=== PATIENT | female | born 1990 | race Caucasian/White ===

== ENCOUNTER 2017-10-25 06:48 | Outpatient (CLI) | payer BC ==
[~2017-10-25 06:48] MED LIST: CIPRO500 MG PO; DEPO-PROVE150 MG/1 M IM; IBUPROFEN800 MG PO; INDOCIN50 MG PO; LEXAPRO20 MG PO; LO-DOSE ASPIRIN81 M1 PO; MACROBID100 MG PO; MOTRIN800 MG PO; NAPROSYN500 MG PO; PREDNISONE20 MG PO; PRENATAL TABLE1 EACH PO; SEROQUEL100 MG PO; ULTRACET1 TABLET PO; VICODIN 5-3001 EACH PO; XANAX0.5 MG PO
[2017-10-25 07:11] VITALS: BP 102/63
[2017-10-25 07:52] LABS: BASOPHIL (%) 0.5 % (0-1); BASOPHIL COUNT 0.1 K/uL (0-0.1); EOSINOPHIL (%) 2.6 % (0-5); EOSINOPHIL COUNT 0.3 K/uL (0-0.3); HEMATOCRIT 33.5 % (36.0-46.0); HEMOGLOBIN 11.4 G/DL (11.9-15.5); IMMATURE GRANULOCYTE (%) 0.5 % (0.0-0.7); LYMPHOCYTE (%) 20.6 % (15-42); LYMPHOCYTE COUNT 2.3 K/uL (1.0-2.8); MCH 30.9 PG (29.0-34.0); MCV 90.8 FL (83-99); MONOCYTE (%) 5.5 % (3-12); MONOCYTE COUNT 0.6 K/uL (0-0.8); NEUTROPHIL (%) 70.3 % (45-76); PLATELET COUNT 259 K/uL (156-360); RBC DIS.WIDTH-SD 42.6 % (39-53); RED BLOOD COUNT 3.69 M/uL (3.80-5.20); WHITE BLOOD COUNT 11.3 K/uL (4.1-10.2)
[2017-10-25 08:02] LABS: APPEARANCE CLOUDY ((CLEAR)); BILIRUBIN NEGATIVE; BLOOD NEGATIVE; GLUCOSE (STRIP) NEGATIVE; KETONES NEGATIVE; LEUKOCYTES LARGE; NITRITE NEGATIVE; PROTEIN (STRIP) NEGATIVE
[2017-10-25 08:07] LABS: COLOR YELLOW ((YELLOW))
[2017-10-25 08:14] LABS: ALBUMIN 3.2 G/DL (3.2-4.8); ALKALINE PHOSPHATASE 69 IU/L (3-129); ALT (GPT) 15 IU/L (3-49); AMYLASE 39 IU/L (1-118); AST (GOT) 20 IU/L (2-34); CHLORIDE 108 MEQ/L (99-109); CREATININE 0.5 MG/DL (0.6-1.3); GFR ESTIMATE (CALCULATED) > 59 mL/min/; GLUCOSE 83 mg/dL (70-99); LIPASE 14 U/L (1.0-51.0); POTASSIUM 3.4 MEQ/L (3.7-5.4); SODIUM 138 MEQ/L (136-147); TOTAL BILIRUBIN 0.4 MG/DL (0.0-1.0); TOTAL PROTEIN 5.7 G/DL (6.4-8.3); UREA NITROGEN (BUN) 5 mg/dL (9-23)
[2017-10-25 08:19] LABS: EPITHELIAL CELLS 4+ /HPF; MUCUS 1+ /LPF
[2017-10-25 08:20] LABS: BACTERIA 3+ /HPF; RED BLOOD CELLS NONE SEEN /HPF (0-5); UCUL ADDED? YES; WHITE BLOOD CELLS TNTC /HPF (0-5)
[2017-10-25 08:21] LABS: CALCIUM OXALATE CRYSTALS 2+ /HPF
[2017-10-25 08:23] LABS: AMPHETAMINE NEGATIVE (500 ng/mL); BARBITURATES NEGATIVE (200 ng/mL); BENZODIAZEPINES NEGATIVE (150 ng/mL); BUPRENORPHINE NEGATIVE (10 ng/mL); COCAINE NEGATIVE (150 ng/mL); METHADONE NEGATIVE (200 ng/mL); METHAMPHETAMINE NEGATIVE (500 ng/mL); OPIATES (MORPHINE) NEGATIVE (100 ng/mL); OXYCODONE NEGATIVE (100 ng/mL); PHENCYCLIDINE NEGATIVE (25 ng/mL); PROPOXYPHENE NEGATIVE (300 ng/mL); THC CANNABINOIDS NEGATIVE (50 ng/mL); TRICYCLIC ANTIDEPRESSANTS NEGATIVE (300 ng/mL)
[2017-10-25 08:24] LABS: UR CREATININE CONCENTRATION 238.4 MG/DL
[2017-10-25 10:07] LABS: SOURCE URINE
[2017-10-25 11:40] LABS: APPEARANCE SL.HAZY ((CLEAR)); BILIRUBIN NEGATIVE; BLOOD NEGATIVE; COLOR YELLOW ((YELLOW)); GLUCOSE (STRIP) NEGATIVE; KETONES NEGATIVE; LEUKOCYTES NEGATIVE; NITRITE NEGATIVE; PROTEIN (STRIP) NEGATIVE; SPECIFIC GRAVITY 1.012 (1.000-1.030)
[2017-10-25 12:18] LABS: BACTERIA RARE /HPF; EPITHELIAL CELLS NONE SEEN /HPF; MUCUS TRACE /LPF; RED BLOOD CELLS 0-5 /HPF (0-5); WHITE BLOOD CELLS 0-5 /HPF (0-5)
[2017-10-25 21:20] LABS: CANDIDA DNA PROBE NEGATIVE; GARDNERELLA DNA PROBE NEGATIVE; TRICHOMONAS DNA PROBE NEGATIVE
[2017-10-26 14:14] LABS: CHLAMYDIA TRACHOMATIS NEGATIVE; NEISSERIA GONORRHOEAE NEGATIVE
== END 2017-10-25 13:49 | disposition home or self-care (01) ==
LOC: LDRP-OP 06:48 → 2WEST 06:53 → LDRP-OP 03-19 08:37
PROVIDERS: Advanced Practice Midwife; Obstetrics & Gynecology
DX: O26.612 Liver and biliary tract disorders in pregnancy, second trimester (principal); K80.20 Calculus of gallbladder without cholecystitis without obstruction; O99.282 Endocrine, nutritional and metabolic diseases complicating pregnancy, second trimester; E87.6 Hypokalemia; M54.9 Dorsalgia, unspecified; O99.332 Smoking (tobacco) complicating pregnancy, second trimester; F17.210 Nicotine dependence, cigarettes, uncomplicated; Z3A.23 23 weeks gestation of pregnancy
CPT/HCPCS: 59025; 76705; 76770; 76805; 80053; 81003; 82150; 82570; 82731; 83690; 84156; 85025; 87086; 87480; 87491; 87510; 87591; 87660; G0378; J7120

== ENCOUNTER 2017-11-15 14:31 | Outpatient (CLI) | payer BC, OTHER | END 2017-11-15 18:31 | disposition home or self-care (01) | LOC: LDRP-OP 14:31 → 2WEST 14:32 → LDRP-OP 03-19 00:16 | DX: O9A.212 Injury, poisoning and certain other consequences of external causes complicating pregnancy, second trimester (principal); Z3A.26 26 weeks gestation of pregnancy; W19.XXXA Unspecified fall, initial encounter | CPT/HCPCS: 59025; 76805; G0378 ==

== ENCOUNTER → 2017-11-17 | Outpatient (CLI) | payer BC, OTHER ==
[~2017-11-17] VITALS: Ht 170.2 cm; Wt 73.0 kg
[2017-11-17 15:48] VITALS: BP 114/71
== END | disposition home or self-care (01) ==
LOC: IVINF 15:00
DX: Z34.80 Encounter for supervision of other normal pregnancy, unspecified trimester (principal); Z31.82 Encounter for Rh incompatibility status; Z3A.00 Weeks of gestation of pregnancy not specified; Z67.91 Unspecified blood type, Rh negative
CPT/HCPCS: 96372

== ENCOUNTER 2017-11-25 11:57 | Outpatient (CLI) | payer BC, OTHER ==
[~2017-11-25] VITALS: Ht 170.2 cm; Wt 75.6 kg
[2017-11-25 12:33] LABS: HEMATOCRIT 34.7 % (36.0-46.0); MCH 30.8 PG (29.0-34.0); MCHC 34.6 G/DL (30.0-36.0); MCV 89.2 FL (83-99); PLATELET COUNT 279 K/uL (156-360); RBC DIS.WIDTH-CV 13.1 % (11.8-14.6); RBC DIS.WIDTH-SD 42.6 % (39-53); RED BLOOD COUNT 3.89 M/uL (3.80-5.20)
[2017-11-25 12:47] LABS: ALBUMIN 3.4 g/dL (3.2-4.8); CHLORIDE 110 mEq/L (99-109); POTASSIUM 3.7 mEq/L (3.7-5.4); SODIUM 141 mEq/L (136-147)
[2017-11-25 12:49] LABS: GLUCOSE 87 mg/dL (70-99); TOTAL PROTEIN 6.7 g/dL (6.4-8.3)
[2017-11-25 12:51] LABS: TOTAL BILIRUBIN 0.5 mg/dL (0.0-1.0)
[2017-11-25 12:53] LABS: ALKALINE PHOSPHATASE 80 IU/L (3-129); CREATININE 0.6 mg/dL (0.6-1.3); GFR ESTIMATE (CALCULATED) > 59 mL/min/
[2017-11-25 12:54] LABS: UREA NITROGEN (BUN) 6 mg/dL (9-23)
[2017-11-25 12:55] LABS: AST (GOT) 12 IU/L (2-34)
[2017-11-25 12:56] LABS: ALT (GPT) 8 IU/L (3-49)
[2017-11-25 13:01] LABS: QUANTITATIVE HCG 12719.3 MIU/ML
[2017-11-25 13:35] LABS: LIPASE 15 U/L (1.0-51.0)
[2017-11-25 16:50] LABS: APPEARANCE CLEAR ((CLEAR)); BILIRUBIN NEGATIVE; BLOOD NEGATIVE; COLOR AMBER ((YELLOW)); GLUCOSE (STRIP) NEGATIVE; KETONES 80; LEUKOCYTES SMALL; NITRITE NEGATIVE; PROTEIN (STRIP) 30; SPECIFIC GRAVITY 1.026 (1.000-1.030)
[2017-11-25] MEDS ORDERED: PERCOCET 5/31 TABLET PO (17:45)
[2017-11-25] MEDS ORDERED: KEFLEX500 MG PO (17:45)
[2017-11-25 17:52] LABS: BACTERIA RARE /HPF; EPITHELIAL CELLS 1+ /HPF; MUCUS 3+ /LPF; RED BLOOD CELLS 0-5 /HPF (0-5); UCUL ADDED? YES
[2017-11-25 17:59] VITALS: BP 108/61
== END 2017-11-25 19:30 | disposition home or self-care (01) ==
LOC: EME 11:57 → LDRP-OP 11:57 → EME 18:02 → EDSTATUS 18:12 → 2WEST 18:14
DX: O26.613 Liver and biliary tract disorders in pregnancy, third trimester (principal); O99.612 Diseases of the digestive system complicating pregnancy, second trimester; K80.70 Calculus of gallbladder and bile duct without cholecystitis without obstruction; O99.282 Endocrine, nutritional and metabolic diseases complicating pregnancy, second trimester; E72.12 Methylenetetrahydrofolate reductase deficiency; O99.332 Smoking (tobacco) complicating pregnancy, second trimester; F17.200 Nicotine dependence, unspecified, uncomplicated; Z3A.28 28 weeks gestation of pregnancy; Z88.0 Allergy status to penicillin
CPT/HCPCS: 59025; 76705; 80053; 81003; 83690; 84702; 85027; 87086; 99281; 99285; G0378; J2270; J2405; J7030

== ENCOUNTER 2017-12-11 01:09 | Outpatient (CLI) | payer BC, OTHER ==
[2017-11-25 18:07] VITALS: BP 115/74
[~2017-12-11] VITALS: Ht 170.2 cm; Wt 74.8 kg
[~2017-12-11 01:09] MED LIST changes: +KEFLEX500 MG PO; +PERCOCET 5/31 TABLET PO
[2017-12-11 01:30] VITALS: BP 96/55
[2017-12-11 02:26] LABS: BASOPHIL (%) 0.4 % (0-1); BASOPHIL COUNT 0.1 K/uL (0-0.1); EOSINOPHIL (%) 1.9 % (0-5); EOSINOPHIL COUNT 0.3 K/uL (0-0.3); HEMOGLOBIN 10.7 G/DL (11.9-15.5); IMMATURE GRANULOCYTE (%) 0.4 % (0.0-0.7); LYMPHOCYTE (%) 20.6 % (15-42); LYMPHOCYTE COUNT 2.8 K/uL (1.0-2.8); MCHC 34.5 G/DL (30.0-36.0); MCV 89.9 FL (83-99); MONOCYTE (%) 7.1 % (3-12); NEUTROPHIL (%) 69.6 % (45-76); NEUTROPHIL COUNT 9.4 K/uL (1.8-6.4); PLATELET COUNT 288 K/uL (156-360); RBC DIS.WIDTH-CV 13.2 % (11.8-14.6); RBC DIS.WIDTH-SD 42.6 % (39-53); RED BLOOD COUNT 3.45 M/uL (3.80-5.20); WHITE BLOOD COUNT 13.5 K/uL (4.1-10.2)
[2017-12-11 02:38] LABS: ALBUMIN 3.2 g/dL (3.2-4.8)
[2017-12-11 02:39] LABS: CHLORIDE 106 mEq/L (99-109); POTASSIUM 3.2 mEq/L (3.7-5.4); SODIUM 138 mEq/L (136-147)
[2017-12-11 02:41] LABS: GLUCOSE 124 mg/dL (70-99); TOTAL PROTEIN 5.8 g/dL (6.4-8.3)
[2017-12-11 02:43] LABS: TOTAL BILIRUBIN 0.6 mg/dL (0.0-1.0)
[2017-12-11 02:44] LABS: ALKALINE PHOSPHATASE 93 IU/L (3-129)
[2017-12-11 02:45] LABS: CREATININE 0.6 mg/dL (0.6-1.3); GFR ESTIMATE (CALCULATED) > 59 mL/min/
[2017-12-11 02:46] LABS: AST (GOT) 24 IU/L (2-34); UREA NITROGEN (BUN) 4 mg/dL (9-23)
[2017-12-11 02:48] LABS: ALT (GPT) 10 IU/L (3-49); LIPASE 15 U/L (1.0-51.0)
[2017-12-11 02:48] LABS: APPEARANCE CLOUDY ((CLEAR)); BILIRUBIN NEGATIVE; BLOOD NEGATIVE; COLOR AMBER ((YELLOW)); GLUCOSE (STRIP) NEGATIVE; KETONES NEGATIVE; LEUKOCYTES NEGATIVE; NITRITE NEGATIVE; PROTEIN (STRIP) 30; SPECIFIC GRAVITY 1.019 (1.000-1.030)
[2017-12-11 02:55] LABS: BACTERIA NONE SEEN /HPF; EPITHELIAL CELLS RARE /HPF; HYALINE CASTS 0-5 /LPF; MUCUS 3+ /LPF; RED BLOOD CELLS 0-5 /HPF (0-5)
[2017-12-11 03:05] VITALS: BP 102/60
[2017-12-11 03:26] LABS: THC CANNABINOIDS NEGATIVE (50 ng/mL)
[2017-12-11 03:27] LABS: AMPHETAMINE NEGATIVE (500 ng/mL); BARBITURATES NEGATIVE (200 ng/mL); BENZODIAZEPINES NEGATIVE (150 ng/mL); BUPRENORPHINE NEGATIVE (10 ng/mL); COCAINE NEGATIVE (150 ng/mL); METHADONE NEGATIVE (200 ng/mL); METHAMPHETAMINE NEGATIVE (500 ng/mL); OPIATES (MORPHINE) NEGATIVE (100 ng/mL); OXYCODONE NEGATIVE (100 ng/mL); PHENCYCLIDINE NEGATIVE (25 ng/mL); PROPOXYPHENE NEGATIVE (300 ng/mL); TRICYCLIC ANTIDEPRESSANTS NEGATIVE (300 ng/mL)
[2017-12-11 07:50] VITALS: BP 105/59
[2017-12-11] MEDS ORDERED: KEFLEX500 MG PO (08:15)
[2017-12-11] MEDS ORDERED: MACROBID100 MG PO (08:15)
[2017-12-11] MEDS ORDERED: KLOR-CON20 MEQ PO (08:29)
[2017-12-11 09:45] VITALS: BP 114/65
== END 2017-12-11 10:29 | disposition home or self-care (01) ==
LOC: LDRP-OP → 2WEST 01:10 → LDRP-OP 03-19 18:37
PROVIDERS: Advanced Practice Midwife
DX: O26.613 Liver and biliary tract disorders in pregnancy, third trimester (principal); K80.20 Calculus of gallbladder without cholecystitis without obstruction; O99.342 Other mental disorders complicating pregnancy, second trimester; F31.9 Bipolar disorder, unspecified; O99.282 Endocrine, nutritional and metabolic diseases complicating pregnancy, second trimester; E87.6 Hypokalemia; Z86.19 Personal history of other infectious and parasitic diseases; Z3A.30 30 weeks gestation of pregnancy
CPT/HCPCS: 59025; 76705; 80053; 81003; 82731; 83690; 85025; 87086; G0378; J2270; J2405; J7120